=== PATIENT | female | born 1995 | race African-American/Black ===

== ENCOUNTER 2017-01-21 04:23 | Emergency (ER) | payer SELFPAY ==
[2017-01-21 04:44] VITALS: BP 110/67
--- NOTE | 2017-01-21 05:20 | ER Document Report ---
ED General - General Mode of Arrival: Ambulatory Information source: Patient - HPI Onset: Other - 2 weeks ago <QUYEN VILLEDA - Last Filed: 01/21/17 05:35> - General TRAVEL OUTSIDE OF THE [place] IN LAST 30 DAYS: No <YAMILETH BARRAZA - Last Filed: 01/21/17 07:11> - General Chief Complaint: Lip Swelling Stated Complaint: ALLERGIC REACTION Time Seen by Provider: 01/21/17 04:57 Notes: Patient is a 21 year old female with a history of asthma presents to the emergency department complaining of intermittent lip swelling and pain onset 2 weeks ago. Patient states that her lips started to ooze this morning. Patient states that she has changed a lot of products that she used to attempt to alleviate the pain and swelling. Patient states she is unaware of what it could be. Patient also complains of rash on legs and buttocks. (QUYEN VILLEDA) This reaction started after switching to organic toothpaste. (YAMILETH BARRAZA) - Related Data Allergies/Adverse Reactions: iodine [Iodine] Allergy (Verified 01/03/16 10:00) Shellfish * [Shellfish] Allergy (Verified 01/03/16 10:00) cats Allergy (Uncoded 01/03/16 10:00) dairy\ Adverse Reaction (Uncoded 01/03/16 10:00) Past Medical History - General Information source: Patient - Social History Smoking Status: Unknown if Ever Smoked <QUYEN VILLEDA - Last Filed: 01/21/17 05:35> - Social History Family History: Reviewed & Not Pertinent Pulmonary Medical History: Reports: Hx Asthma Psychiatric Medical History: Reports: Hx Depression - Patient was seen here for a suicidal overdose of Motrin - Immunizations Immunizations up to date: Yes Hx Diphtheria, Pertussis, Tetanus Vaccination: Yes <YAMILETH BARRAZA - Last Filed: 01/21/17 07:11> Review of Systems - Review of Systems Constitutional: No symptoms reported EENT: See HPI Cardiovascular: No symptoms reported Respiratory: No symptoms reported Gastrointestinal: No symptoms reported Genitourinary: No symptoms reported Female Genitourinary: No symptoms reported Musculoskeletal: See HPI, Other - rash on legs and buttocks Skin: No symptoms reported Hematologic/Lymphatic: No symptoms reported Neurological/Psychological: No symptoms reported -: Yes All other systems reviewed and negative <RONALMANNYHERMILO - Last Filed: 01/21/17 05:35> Physical Exam <RONALQUYEN - Last Filed: 01/21/17 05:35> <YAMILETH BARRAZA - Last Filed: 01/21/17 07:11> - Vital signs Vitals: Temp Pulse Resp BP Pulse Ox 98.7 F 71 18 110/67 99 01/21/17 04:39 01/21/17 04:39 01/21/17 04:39 01/21/17 04:39 01/21/17 04:39 - Notes Notes: GENERAL: Alert, interacts well. No acute distress. HEAD: Normocephalic, atraumatic. EYES: Pupils equal, round, and reactive to light. Extraocular movements intact. ENT: Oral mucosa moist, tongue midline. No blistering or vessicles. Lips cracked. Small amount of blood. No induration. No signs of angioedema or allergic reactions. NECK: Full range of motion. Supple. Trachea midline. LUNGS: Clear to auscultation bilaterally, no wheezes, rales, or rhonchi. No respiratory distress. HEART: Regular rate and rhythm. No murmurs, gallops, or rubs. ABDOMEN: Soft, non-tender. Non-distended. Bowel sounds present in all 4 quadrants. EXTREMITIES: Moves all 4 extremities spontaneously. No edema, radial and dorsalis pedis pulses 2/4 bilaterally. No cyanosis. NEUROLOGICAL: Alert and oriented x3. Normal speech. PSYCH: Normal affect, normal mood. SKIN: Warm, dry, normal turgor. No rashes or lesions noted. (QUYEN VILLEDA) Patient was unable to point a rash to me on exam. (YAMILETH BARRAZA) Course <RONALQUYEN - Last Filed: 01/21/17 05:35> <YAMILETH BARRAZA - Last Filed: 01/21/17 07:11> - Re-evaluation Re-evalutation: 01/21/17 05:13 No evidence of anaphylaxis or systemic allergic reaction. Patient does have some cracking and bleeding of the lips but no sloughing of the skin. No evidence of Kern-Daquan syndrome, no other mucous membranes are involved. There is no swelling of the tongue, doubt angioedema. No evidence of airway compromise or airway involvement. Discussed with patient that it was a good idea for her to cut out the new toothpaste however she also needs to change toothbrushes to make sure there is no residue from her new toothpaste left over. Patient is also counseled to use Pepcid and Benadryl for the next several days, sleep with a humidifier and follow-up with a insurance verifier if her symptoms do not improve. Continue using Aquaphor. (YAMILETH BARRZAA) - Vital Signs Vital signs: Temp Pulse Resp BP Pulse Ox 98.7 F 71 18 110/67 99 01/21/17 04:39 01/21/17 04:39 01/21/17 04:39 01/21/17 04:39 01/21/17 04:39 Discharge <QUYEN VILLEDA - Last Filed: 01/21/17 05:35> <YAMILETH BARRAZA - Last Filed: 01/21/17 07:11> - Discharge Clinical Impression: Lip dryness Contact dermatitis Qualifiers: Contact dermatitis type: unspecified Contact dermatitis trigger: unspecified trigger Qualified Code(s): L25.9 - Unspecified contact dermatitis, unspecified cause Condition: Stable Disposition: HOME, SELF-CARE Additional Instructions: I do not know exactly what is causing irritation to her lips. I suspect is coming from the new toothpaste that you were using. You did the right thing by stopping the toothpaste however you need to buy a new toothbrush as well. Please take Benadryl 1-2 tablets every 6 hours as needed for itching or swelling. You may also take Pepcid 1 tablet twice a day to decrease histamine release as well. To decrease irritation of your lips please continue to use Aquaphor or even plain Vaseline, please sleep with a humidifier. If your symptoms get worse instead of better please consider seeing a insurance verifier. Return to emergency department should you develop difficulty breathing, swallowing, tongue swelling or any new or concerning symptoms. Referrals: RENARD FONTANEZ DO [ACTIVE STAFF] - Follow up as needed Scribe Attestation: 01/21/17 07:11 I personally performed the services described in the documentation, reviewed and edited the documentation which was dictated to the scribe in my presence, and it accurately records my words and actions. (YAMILETH BARRAZA) Scribe Documentation - Scribe Written by Concepcion:: Concepcion Shankar, 01/21/2017 05:35 acting as scribe for :: Lamar <QUYEN VILLEDA - Last Filed: 01/21/17 05:35>
== END 2017-01-21 05:33 | disposition home or self-care (01) ==
LOC: ER 04:23
DX: L25.9 Unspecified contact dermatitis, unspecified cause (principal); R22.0 Localized swelling, mass and lump, head
CPT/HCPCS: 99283